=== PATIENT | female | born 1970 | race Caucasian/White ===

== ENCOUNTER 2017-05-21 09:08 | Emergency (ER) | payer BC ==
--- NOTE | 2017-05-21 09:26 | EDPHY ---
H & P Stated Complaint: 2 weeks sob/heavy chest/cant get full breath Source: Patient Exam Limitations: No limitations - Personal History LMP (Females 10-55): Irregular Current Tetanus/Diphtheria Vaccine: Yes - Medical/Surgical History Hx Asthma: No Hx Chronic Respiratory Disease: No Hx Diabetes: No Hx Cardiac Disease: No Hx Renal Disease: No Hx Cirrhosis: No Hx Alcoholism: No Hx HIV/AIDS: No Hx Splenectomy or Spleen Trauma: No Other PMH: denies - Social History Smoking Status: Never smoked Time Seen by Provider: 05/21/17 09:25 HPI/ROS: HPI: This is a 47-year-old female who presents with Chief Complaint: 2 weeks sob/heavy chest/cant get full breath Location: Chest Quality: Dyspnea Duration: 2 weeks Signs and Symptoms: No fever, no chills, no chest pain, + heart racing, + abdominal bloating, no myalgias Timing: Occurs every few days lasting anywhere from a few seconds to an hour Severity: [id number] Context: Patient is generally healthy, no history of lung disease, presents with 2 weeks of intermittent occurring several times per week lasting anywhere from a few seconds to an hour a feeling like she can't catch her breath, accompanied by heaviness in her chest with her heart racing at times. She explains that the feeling of her shortness of breath improves when she lies flat. Denies any radiation of the pain to her back. She denies fever, chills, myalgias, wheezing, chest pain. She has had no recent long distance travel. Nonsmoker. Irregular menstrual periods-cely menopausal. She reports that a similar episode had occurred several years ago she went to an urgent care and had a chest x-ray performed and was normal. She never followed up after that visit at urgent care for further evaluation. She denies any increased stress or anxiety. She does suffer from multiple environmental and food allergies and has chronic rhinorrhea. Takes allergy medication. Modifying Factors: None Comment: ROS: see HPI Constitutional: No fever, no chills, no weight loss Eyes: No blurred vision Respiratory: + shortness of breath, no cough Cardiovascular: No chest pain Gastrointestinal: No nausea, no vomiting, no diarrhea Genitourinary: No dysuria Extremities: No myalgias Neurologic: No weakness, no numbness Skin: No rashes Hematologic: No bruising, no bleeding MEDICAL/SURGICAL/SOCIAL HISTORY: Medical history: Generally healthy. Does not take any regular medications. Surgical history: Denies Social history: Employed. CONSTITUTIONAL: Slightly anxious well-developed well-nourished extremely well- appearing, nontoxic in appearance adult white female, awake and alert, no obvious distress HEENT: Atraumatic and normocephalic, PERRL, EOMI. Wears glasses. Tympanic membranes clear. Oropharynx clear, no exudate and moist pink mucosa. Airway patent. No lymphadenopathy. No meningismus. Cardiovascular: Normal S1/S2, no friction rub, regular rate, regular rhythm, without murmur rub or gallop. PULMONARY/CHEST: Symmetrical and nontender. Clear to auscultation bilaterally. Good air movement. No accessory muscle usage. ABDOMEN: Soft, nondistended, nontender, no rebound, no guarding, no peritoneal signs, no masses or organomegaly. No CVAT. EXTREMITIES: 2/2 pulses, strength 5/5, no deformities, no clubbing, no cyanosis or edema. NEUROLOGICAL: no focal neuro deficits. GCS 15. SKIN: Warm and dry, no erythema. no rash. Good capillary refill. (Lynnette Fu) Constitutional: Initial Vital Signs Temperature (C) 36.5 C 05/21/17 09:12 Heart Rate 89 05/21/17 09:12 Respiratory Rate 19 05/21/17 09:12 Blood Pressure 122/81 H 05/21/17 09:12 O2 Sat (%) 99 05/21/17 09:12 O2 Delivery Mode Room Air Allergies/Adverse Reactions: No Known Allergies Allergy (Unverified 05/21/17 09:11) Home Medications: Medication Instructions Recorded Allertec 05/21/17 Metamucil 05/21/17 Medical Decision Making - Diagnostics EKG Interpretation: 12 lead EKG: Indication: Dyspnea Rhythm: Normal sinus rhythm, rate 65 beats per minute Boles: Normal Intervals: Normal QRS: Normal ST segments: Normal INTERPRETATION: Normal EKG The 12 lead EKG was interpreted by myself and with attending. (Lynnette Fu) Imaging Results: Imaging Impressions Abdomen X-Ray 05/21/17 09:33 Impression: 1. Clear lungs. No acute process. 2. Normal bowel pattern. No pneumoperitoneum or obstruction. ED Course/Re-evaluation: The patient was evaluated and managed by the physician's executive personal assistant. My cosignature indicates that I reviewed the chart and I agree with the findings and plan of care as documented. I am the secondary supervising physician. ( Kerrie Blair) Acute abdominal series, EKG, labs ordered Vital signs reviewed upon arrival in no signs of hypoxia/tachycardia EKG shows no signs of arrhythmia, pericarditis, acute coronary syndrome D-dimer within normal limits; no signs of pulmonary embolism Labs reviewed and no signs of congestive heart failure, acute coronary syndrome , anemia, acute kidney injury, electrolyte imbalance, elevated LFTs ESR within normal limits Acute x-ray series reviewed and shows no signs of opacity, effusion, pneumothorax, obstruction. Reassessed patient who states that her dyspnea has resolved. Vital signs are stable at discharge. This patient was seen under the supervision of my secondary supervising physician. I evaluated care for this patient independently. Discussed this patient with Dr. Guevara who did not see the patient. The patient was seen in conjunction with Dr. Guevara, who saw and evaluated the patient. Patient's presentation, labs/imaging, treatment and plan of care were discussed with secondary supervising physician. (Lynnette Fu) Differential Diagnosis: Shortness of breath including but not limited to pulmonary infectious process, pericarditis, pulmonary embolus and congestive heart failure. (Lynnette Fu) - Data Points Laboratory Results: Laboratory Results 05/21/17 10:16 05/21/17 09:45 05/21/17 05/21/17 05/21/17 10:16 09:45 09:45 WBC 6.36 10^3/uL 10^3/uL (3.80-9.50) RBC 4.13 10^6/uL L 10^6/uL (4.18-5.33) Hgb 13.3 g/dL g/dL (12.6-16.3) Hct 37.4 % L % (38.0-47.0) MCV 90.6 fL fL (81.5-99.8) MCH 32.2 pg pg (27.9-34.1) MCHC 35.6 g/dL g/dL (32.4-36.7) RDW 11.9 % % (11.5-15.2) Plt Count 188 10^3/uL 10^3/uL (150-400) MPV 11.2 fL fL (8.7-11.7) Neut % (Auto) 66.1 % % (39.3-74.2) Lymph % (Auto) 23.9 % % (15.0-45.0) [place] % (Auto) 8.2 % % (4.5-13.0) Eos % (Auto) 1.3 % % (0.6-7.6) Baso % (Auto) 0.3 % % (0.3-1.7) Nucleat RBC Rel Count 0.0 % % (0.0-0.2) Absolute Neuts (auto) 4.21 10^3/uL 10^3/uL (1.70-6.50) Absolute Lymphs (auto) 1.52 10^3/uL 10^3/uL (1.00-3.00) Absolute Monos (auto) 0.52 10^3/uL 10^3/uL (0.30-0.80) Absolute Eos (auto) 0.08 10^3/uL 10^3/uL (0.03-0.40) Absolute Basos (auto) 0.02 10^3/uL 10^3/uL (0.02-0.10) Absolute Nucleated RBC 0.00 10^3/uL 10^3/uL (0-0.01) Immature Gran % 0.2 % % (0.0-1.1) Immature Gran # 0.01 10^3/uL 10^3/uL (0.00-0.10) ESR 5 MM/HR MM/HR (0-20) D-Dimer < 0.27 ug/mLFEU ug/mLFEU (0.00-0.50) Sodium 140 mEq/L mEq/L (134-144) Potassium 4.2 mEq/L mEq/L (3.5-5.2) Chloride 105 mEq/L mEq/L (97-110) Carbon Dioxide 24 mEq/l mEq/l (22-31) Anion Gap 11 mEq/L mEq/L (8-16) BUN 13 mg/dL mg/dL (7-23) Creatinine 0.8 mg/dL mg/dL (0.6-1.0) Estimated GFR > 60 Glucose 90 mg/dL mg/dL (70-100) Calcium 9.3 mg/dL mg/dL (8.5-10.4) Total Bilirubin 0.6 mg/dL mg/dL (0.1-1.4) Conjugated Bilirubin 0.0 mg/dL mg/dL (0.0-0.5) Unconjugated Bilirubin 0.6 mg/dL mg/dL (0.0-1.1) AST 23 IU/L IU/L (14-46) ALT 27 IU/L IU/L (9-52) Alkaline Phosphatase 66 IU/L IU/L (38-126) Troponin I < 0.012 ng/mL ng/mL (0.000-0.034) NT-Pro-B Natriuret Pep 42 pg/mL pg/mL (0-125) Total Protein 6.7 g/dL g/dL (6.3-8.2) Albumin 3.9 g/dL g/dL (3.5-5.0) Lipase 107 IU/L IU/L (23-300) Departure - Departure Disposition: Home, Routine, Self-Care Clinical Impression: Dyspnea Qualifiers: Dyspnea type: unspecified Qualified Code(s): R06.00 - Dyspnea, unspecified Condition: Good Instructions: Dyspnea (ED) Additional Instructions: Please follow-up with Pulmonology and Cardiology within the next 1 week for further evaluation of your dyspnea. If at any time you have worsening shortness of breath, chest pain, fevers; please return to the emergency room immediately for further evaluation. Referrals: Marion Montero MD [Primary Care Provider] - As per Instructions Arpita Alegria MD [Medical Doctor] - As per Instructions Ron Link MD [Medical Doctor] - As per Instructions
--- NOTE | 2017-05-21 10:16 | CPEKG ---
Heart Rate: 65 RR Interval: 923 P-R Interval: 160 QRSD Interval: 80 QT Interval: 400 QTC Interval: 416 P [place]: 66 QRS [place]: 72 T Wave [place]: 53 EKG Severity - NORMAL ECG - EKG Impression: SINUS RHYTHM Electronically Signed By: Kerrie Blair 21-May-2017 15:14:11
[2017-05-21 10:18] LABS: ALANINE AMINOTRANSFERASE 27 IU/L (9-52); ALBUMIN 3.9 g/dL (3.5-5.0); ALKALINE PHOSPHATASE 66 IU/L (38-126); ANION GAP 11 mEq/L (8-16); ASPARTATE AMINOTRANSFERASE 23 IU/L (14-46); BILIRUBIN,TOTAL 0.6 mg/dL (0.1-1.4); BILIRUBIN-UNCONJUGATED 0.6 mg/dL (0.0-1.1); CALCIUM 9.3 mg/dL (8.5-10.4); CARBON DIOXIDE 24 mEq/l (22-31); CHLORIDE 105 mEq/L (97-110); CREATININE 0.8 mg/dL (0.6-1.0); GLOMERULAR FILTRATION RATE > 60; GLUCOSE 90 mg/dL (70-100); POTASSIUM 4.2 mEq/L (3.5-5.2); SODIUM 140 mEq/L (134-144); TOTAL PROTEIN 6.7 g/dL (6.3-8.2)
[2017-05-21 10:24] LABS: % IMMATURE GRANULYOCYTES 0.2 % (0.0-1.1); ABSOLUTE IMMATURE GRANULOCYTES 0.01 10^3/uL (0.00-0.10); ADD DIFF? NO; ADD MORPH? NO; ADD SCAN? NO; ATYPICAL LYMPHOCYTE FLAG 10 (0-99); FRAGMENT RBC FLAG 10 (0-99); HEMATOCRIT 37.4 % (38.0-47.0); HEMOGLOBIN 13.3 g/dL (12.6-16.3); LEFT SHIFT FLG 0 (0-99); LIPEMIA HEMOLYSIS FLAG 90 (0-99); MEAN CELL HEMOGLOBIN 32.2 pg (27.9-34.1); MEAN CELL HEMOGLOBIN CONCENTR. 35.6 g/dL (32.4-36.7); MEAN CELL VOLUME 90.6 fL (81.5-99.8); MEAN PLATELET VOLUME 11.2 fL (8.7-11.7); PLATELET CLUMPS FLAG 30 (0-99); PLATELET COUNT 188 10^3/uL (150-400); RED BLOOD CELL COUNT 4.13 10^6/uL (4.18-5.33); RED CELL DISTRIBUTION WIDTH 11.9 % (11.5-15.2)
[2017-05-21 10:27] LABS: TROPONIN I < 0.012 ng/mL (0.000-0.034)
[2017-05-21 10:53] LABS: SEDIMENTATION RATE 5 MM/HR (0-20)
[2017-05-21 12:00] VITALS: BP 92/64; PULSE 69; RESP 16; TEMP 97.9; O2SAT 96
== END 2017-05-21 12:00 | disposition home or self-care (01) ==
DX: R06.00 Dyspnea, unspecified (principal)